=== PATIENT | female | born 1950 | race Caucasian/White ===

== ENCOUNTER → 2016-10-31 | Day surgery (SDC) | payer MEDICARE ==
[~2016-10-31] VITALS: Ht 152.4 cm; Wt 56.7 kg
[~2016-10-31] MED LIST: ALEN70TA46 PO; ASPI-973 PO; ATEN25TA PO; CALC1CAP26 PO; CHOL200025 PO; GLUC-120 PO; HYDR-4003 PO; IPRA15SP NASAL; LAMO100T2 PO; LEVO100T6 PO; LOVA20TA PO; MULT-666 PO; OMEP20TA86 PO; OXCA600T PO; Propofol 10,000 mCg/mL 20 mL Inj ONE; RANI150C4 PO; Sodium Chloride LOK Flush 10 mL Syringe IV PRN; fentaNYL-PF 50 mCg/mL 2 mL Inj IVPUSH PRN; fentaNYL-PF 50 mCg/mL 2 mL Inj ONE
[2016-10-31 11:19] VITALS: BP 149/89; PULSE 58; RESP 16; O2SAT 97
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
[2016-10-31] MEDS: 0.9% Sodium Chloride 1,000 ML IV SCH ×3 (12:58→13:10)
[2016-10-31 13:18] VITALS: BP 113/67; PULSE 53; RESP 16; O2SAT 99
--- NOTE | 2016-10-31 13:26 | ENDO ---
[address] [address] ENDOSCOPY PROCEDURE PATIENT: CHEMA MAYS : 1950 MR#: [id number] ADMIT: 10/31/2016 JOB ID: [id number] DATE OF SERVICE: 10/31/2016 TYPE OF OPERATION: 1. Esophagogastroduodenoscopy with biopsy. 2. Colonoscopy with biopsy. PREOPERATIVE DIAGNOSIS(ES): 1. Gastroesophageal reflux disease. 2. Diarrhea. POSTOPERATIVE DIAGNOSIS(ES): 1. Normal upper endoscopy, status post biopsy. 2. Tortuous colon, otherwise normal, status post biopsy. 3. Small internal hemorrhoids. ANESTHESIA: Monitored anesthesia care. COMPLICATIONS: None. ESTIMATED BLOOD LOSS: Minimal. DESCRIPTION OF PROCEDURE: After risks and benefits explained to the patient, informed consent was obtained. After anesthesia administered, an upper endoscope was then inserted through mouth, intubating through esophagus, stomach, second portion of duodenum. Mucosa carefully examined. After procedure was done, the scope withdrawn and the procedure terminated. Colonoscope was then inserted from the rectum to terminal ileum. Mucosa carefully examined. Prep of the patient was excellent. After procedure was done, the scope was withdrawn and the procedure terminated. FINDINGS: Upon inspection of the esophagus, esophagus was normal without masses, ulcers, or lesions. Z-line located at 35 cm from incisors. Upon entering the stomach, stomach was also normal with masses, ulcers, or lesions. Retroflexion was normal. Duodenal bulb, first and second portions normal. Biopsies taken at the antrum, body and distal esophagus. Upon inspection of the anus no masses, hemorrhoids, ulcers, fissures that were seen. Throughout the entire examination, there were no polyps, masses, or lesions. The colon was quite tortuous. Biopsies taken of the terminal and random colon. Retroflexion showed small internal hemorrhoids. IMPRESSION: 1. Small internal hemorrhoids. 2. Tortuous colon. 3. Normal endoscopy, status post biopsy. RECOMMENDATION: Await pathology results. Follow up in GI clinic as needed.
[2016-10-31 13:27] VITALS: BP 137/82; PULSE 59; RESP 16; O2SAT 97
--- NOTE | 2016-10-31 14:06 | PCM.ANEP1 ---
Post Anesthesia PACU Phase 1 Assessment Vital Signs Vital Signs Date Time Temp Pulse Resp B/P Pulse Ox O2 Delivery O2 Flow Rate FiO2 10/31/16 13:27 59 16 137/82 97 Room Air 10/31/16 13:18 36.3 53 16 113/67 99 Room Air 10/31/16 11:19 58 16 149/89 97 Room Air Anesthetic Administered: MAC Level of Alertness: Awake, talking BRICE's with Equal Strength: Yes Pain: No Nausea or Vomiting: No CV Function & Hydration Stable: Yes Airway Device: Oxygen Delivery: Room Air Lungs: Clear to Auscultation, Normal Air Movement Dermatome Level: Full Sensation PACU Phase 2 Assessment Complications: No Follow up Care: N/A Patient Instructions Provided: Yes Dieter Anderson MD Oct 31, 2016 14:06
--- NOTE | 2016-11-06 09:37 | PATH ---
SURGICAL PATHOLOGY Attending Physician:Kristopher Figueroa MD CASE STATUS: Signed Out PATIENT NAME: CHEMA MAYS PID: [id number] : 1950 DATE COLLECTED:10/31/2016 00:00 SPECIMEN: 1: Stomach, Antrum, Biopsy 2: Gastric, Biopsy 3: Esophagus, Biopsy 4: Ileum, Biopsy 5: Colon, Biopsy CLINICAL HISTORY: 1). ANTRUM BIOPSY RULE OUT H PYLORI 2). GASTRIC BODY BIOPSY RULE OUT H PYLORI 3). DISTAL ESOPHAGUS BIOPSY 4). TERMINAL ILEUM BIOPSY 5). RANDOM COLON BIOPSY FINAL DIAGNOSIS: 1. Stomach, Antrum, Biopsy: Antral mucosa with no diagnostic abnormality. Helicobacter organisms not identified. Negative for intestinal metaplasia. Negative for dysplasia or malignancy. 2. Stomach, Body, Biopsy: Body-type mucosa with no diagnostic abnormality. Helicobacter organisms not identified. Negative for intestinal metaplasia. Negative for dysplasia and malignancy. 3. Distal Esophagus, Biopsy: Squamous epithelium with no diagnostic abnormality. Intraepithelial eosinophils are not increased. Negative for dysplasia and malignancy. 4. Terminal Ileum Biopsy: Small bowel mucosa with no diagnostic abnormality. Negative for active inflammation, dysplasia and malignancy. 5. Random Colon, Biopsy: Colonic mucosa with no diagnostic abnormality. Negative for active, chronic and microscopic colitis. Negative for dysplasia and malignancy. ICD10: R10.9 NOTE: Immunohistochemical stains for Helicobacter will be performed and the results reported as an addendum. GROSS DESCRIPTION: The specimen is received in five formalin filled containers labeled with the patient's name. 1). The specimen is labeled "antrum" and consists of 2 portions of tissue which aggregate to 0.2 x 0.2 x 0.2 CM. The specimen is entirely submitted in cassette 1A. 2). The specimen is labeled "gastric body" and consists of 2 portions of tissue which aggregate to 0.2 x 0.2 x 0.2 CM. The specimen is entirely submitted in cassette 2A. 3). The specimen is labeled "distal esophagus" and consists of a 0.3 x 0.2 x 0.2 CM portion of tissue which is entirely submitted in cassette 3A. 4). The specimen is labeled "terminal ileum" and consists of a 0.2 x 0.2 x 0.2 CM portion of tissue which is entirely submitted in cassette 4A. 5). The specimen is labeled "random colon" and consists of 5 portions of tissue which aggregate to 0.3 x 0.3 x 0.2 CM. The specimen is entirely submitted in cassette 5A. 11/04/2016ID ICD-9 CODES: CPT CODES: 1: 79731, 18105 2: 58748, 34442 3: 34231 4: 36520 5: 46809 PROCEDURE/ADDENDA: Addendum SPI Addendum Diagnosis This is an addendum to report the results of IHC. Immunohistochemical stains for Helicobacter were performed on blocks 1 and 2 to evaluate for Helicobacter organisms and are both NEGATIVE. A control stain showed appropriate reactivity. * This test was developed and its performance characteristics determined by [facility]. It has not been cleared or approved by the U.[place]. Food and Drug Administration. The FDA has determined that such clearance or approval is not necessary. This test is used for clinical purposes. It should not be regarded as investigational or for research. Addendum Comment {Not Entered} Electronically Signed Out Cely Sheehan MD Electronically Signed Out Cely Sheehan MD [facility] [address], [place] [address] Technical component performed at [facility], [address], [place], [address]
== END | disposition home or self-care (01) ==
LOC: END 00:12
PROVIDERS: ATTEND Internal Medicine Gastroenterology
DX: K64.8 Other hemorrhoids (principal); K21.9 Gastro-esophageal reflux disease without esophagitis; R19.7 Diarrhea, unspecified; I10 Essential (primary) hypertension; I65.29 Occlusion and stenosis of unspecified carotid artery; E78.5 Hyperlipidemia, unspecified; R06.00 Dyspnea, unspecified; E03.9 Hypothyroidism, unspecified; F31.9 Bipolar disorder, unspecified; M19.90 Unspecified osteoarthritis, unspecified site; Z79.82 Long term (current) use of aspirin; Z87.891 Personal history of nicotine dependence
CPT/HCPCS: 43239; 45380; 88305; 88342; J2250; J2704; J3010; J7030